=== PATIENT | female | born 1995 | race African-American/Black ===

== ENCOUNTER → 2016-07-02 | Outpatient (CLI) | payer OTHER ==
[~2016-07-02] MED LIST: ACET325T PO; CEPH500C PO; CITA20TA4 PO; FERR325T PO; FLUO1TAB3 PO; IBUP-232 PO; PERI8.6T PO; PRENTAB16 PO; PYRI25TA2 PO; SENN1TAB PO; TETA1INJ6 IM; TRAZ50TA12 PO
== END ==
LOC: HPND 11:57
PROVIDERS: ATTEND Family Medicine
DX: O26.849 Uterine size-date discrepancy, unspecified trimester (principal)
CPT/HCPCS: 76816

== ENCOUNTER 2016-10-15 20:41 | Inpatient (IN) | payer OTHER ==
[~2016-10-15 20:41] MED LIST changes: -ACET325T PO; -CEPH500C PO; -CITA20TA4 PO; -FLUO1TAB3 PO; -IBUP-232 PO; -SENN1TAB PO; -TETA1INJ6 IM; -TRAZ50TA12 PO
[2016-10-15] MEDS ORDERED: LACTATED RINGER'S 1000 ML INJ 1,000 ML IV PRN (21:33)
[2016-10-15] MEDS ORDERED: SODIUM CHLORID 0.9% 500 ML INJ 500 ML IV PRN (21:45)
[2016-10-15] MEDS ORDERED: LIDOCAINE HCL 1% 50 ML VIAL I-DERMAL PRN (21:45)
[2016-10-15] MEDS ORDERED: CITRIC ACID-SODIUM CITRATE LIQ 30 ML UDC PO SCH (21:45)
[2016-10-15] MEDS ORDERED: DINOPROSTONE 10 MG VAG INSERT VAGINAL ONE (21:45)
[2016-10-15] MEDS ORDERED: PENICILLIN G POTASSIUM INJ 5,000,000 UNITS in SODIUM CHLORIDE 0.9% INJ 100 ML IV ONE (21:45)
[2016-10-15] MEDS ORDERED: LIDOCAINE HCL 1% 50 ML VIAL INFIL PRN (21:45)
[2016-10-15] MEDS ORDERED: OXYTOCIN 30 UNITS-500ML PREMIX 500 ML IV ONE (21:45)
[2016-10-15] MEDS ORDERED: MINERAL OIL 10 ML VIAL TOPICAL PRN (21:45)
[2016-10-15] MEDS: LACTATED RINGER'S 1000 ML INJ 1,000 ML IV SCH (21:51)
[2016-10-15] MEDS ORDERED: SODIUM CHLOR 0.9% 1000 ML INJ 1,000 ML IV PRN (21:53)
--- NOTE | 2016-10-15 21:54 | HHI.HP ---
HPI Date Seen: October 15, 2016 Time Seen: 21:30 (Lucius Perry MD R3) Travel History International Travel<30 Days: No Contact w/Intl Traveler<30Days: No Known Affected Area: No (Lucius Perry MD R3) History of Present Illness HPI 21 year old patient at 40 and 4/7 weeks gestation presents for labor induction for post-dates . Davesha c/o mild low back pain at this time. Has been on-going issue throughout the third trimester. Otherwise no complaints. Endorses FM. Denies any VB or LOF. Para: 1 : 2 Miscarriage: 0 : 0 (Lucius Perry MD R3) History Past Medical History Medical History: Denies Significant Hx (Lucius Perry MD R3) Obstetric History Obstetric History 1st - no complications. Full term . Current - Post-dates, otherwise no complications. GBS positive. ( Lucius Perry MD R3) Past Surgical History Surgical History: No Previous Surgery (Lucius Perry MD R3) Family History Family History: Negative (Lucius Perry MD R3) Social History Alcohol Use: No Tobacco Use: Yes (1-2 cigarettes per day) Substance Abuse: Yes (Marijuana in 1st trimester) (Lucius Perry MD R3) Allergies-Medications (Allergen,Severity, Reaction): Coded Allergies: No Known Allergies (Verified , 10/10/16) Home Meds Active Scripts Ferrous Sulfate 325 Mg [id number] Mg PO BID #60 TAB Ref 11 Prov:Umer Mabry MD R2 10/09/16 Pyridoxine 25 Mg Tab25 Mg PO DAILY #30 TAB Ref 11 Prov:Ellen Morrow MD 07/19/16 Vit W/ Ferrous Fumara ( Complete 14-0.4 mg)1 Tab Tab1 Tab PO DAILY #30 TAB Ref 11 Prov:Ellen Morrow MD 06/20/16 Sennosides-Docusate Sodium (Caitlyn-Colace)8.6-50 Mg Tab1 Tab PO DAILY PRN ( Constipation) #30 TAB Ref 11 Prov:Ellen Morrow MD 06/20/16 Discontinued Scripts Ferrous Sulfate 325 Mg [id number] Mg PO DAILY #30 TAB Ref 11 Prov:Ellen Morrow MD 07/19/16 Review of Systems General / Constitutional: No: Fever, Weight Loss, Chills Eyes: No: Diploplia, Blurred Vision HENT: No: Headaches, Vertigo Cardiovascular: No: Irregular Rhythm, Chest Pain or Discomfort Respiratory: No: Cough, Short of Breath Gastrointestinal: No: Nausea, Vomiting Genitourinary: No: Urgency, Frequency Musculoskeletal: Pain (Back), No: Limited ROM, Weakness, Cramping Skin: No Rash, No Itching Neurologic: No: Weakness, Dizziness, Syncope Psychiatric: No: Anxiety, Depression (Lucius Perry MD R3) Physical Exam Narrative VITALS: reviewed and WNL. GENERAL: Well-nourished, well-developed patient. SKIN: Warm and dry. HEAD: Normocephalic and atraumatic. EYES: No scleral icterus. No injection or drainage. ENT: No nasal drainage noted. Mucous membranes pink. Airway patent. NECK: Supple, trachea midline. No JVD. CARDIOVASCULAR: Regular rate and rhythm without murmurs, gallops, or rubs. RESPIRATORY: Breath sounds equal bilaterally. No accessory muscle use. ABDOMEN/GI: Abdomen soft, non-tender, bowel sounds present, no rebound, no guarding GENITOURINARY: External Genitalia: intact and normal in appearance Cervix: intermediate Dilatation: 3 cm Effacement: 30% Station: -2 Presentation: vertex Membranes: intact Uterine Contractions: irritable FHT's: cat 1. Baseline of 150. EXTREMITIES: No cyanosis or edema. BACK: Nontender without obvious deformity. No CVA tenderness. NEUROLOGICAL: Awake and alert. Motor and sensory grossly within normal limits. Five out of 5 muscle strength in all muscle groups. Normal speech. (Lucius Perry MD R3) Data Data Vital Signs Reviewed: Yes Orders Admit To Inpatient (10/15/16 ) Code Status (10/15/16 21:33) Vital Signs (Adult) .Per protocol (10/15/16 21:33) Activity Oob Ad Nichelle (10/15/16 21:33) Heart (10/15/16 21:33) Amnioinfusion (10/15/16 21:33) Urinary Catheter Management .ONCE (10/15/16 21:33) Diet Liquid (10/16/16 Breakfast) Lactated Ringer's 1000 Ml Inj (Lr 1000 M (10/15/16 21:33) Lactated Ringer's 1000 Ml Inj (Lr 1000 M (10/15/16 21:33) Sodium Chlorid 0.9% 500 Ml Inj (Ns 500 M (10/15/16 21:45) Sodium Chlor 0.9% 1000 Ml Inj (Ns 1000 M (10/15/16 21:53) Lidocaine 1% Inj (50 Ml) (Xylocaine 1% I (10/15/16 21:45) Citric Acid-Sodium Citrate Liq (Bicitra (10/15/16 21:45) Fentanyl Inj (Fentanyl Inj) (10/15/16 21:45) Fentanyl Inj (Fentanyl Inj) (10/15/16 21:45) Penicillin G Potassium Inj (Pfizerpen-G (10/15/16 21:45) Penicillin G Potassium Inj (Pfizerpen-G (10/16/16 01:45) Complete Blood Count With Diff (10/15/16 21:33) Hold Clot (10/15/16 21:33) Abo/Rh Blood Type (10/15/16 21:33) Urinalysis - C+S If Indicated (10/15/16 21:33) Rapid Plasma Regin (Rpr) W Ttr (10/15/16 21:33) Hepatitis Profile (10/15/16 21:33) Resp Oxygen Non Rebreathe Mask (10/15/16 ) ^ Epidural / Intrathecal Infus (10/15/16 21:33) Oxytocin 30 Units-500ml Premix (Pitocin (10/15/16 21:45) Lidocaine 1% Inj (50 Ml) (Xylocaine 1% I (10/15/16 21:45) Light Mineral Oil (Muri-Lube Oil) (10/15/16 21:45) ^ Labor Induction (10/15/16 21:33) ^ Vaginal Insert (10/15/16 21:33) ^ Vaginal Lavage (10/15/16 21:33) Heart (10/15/16 21:33) Dinoprostone Vag Insert (Cervidil Vag In (10/15/16 21:45) Inpatient Certification (10/15/16 ) Specimen To Be Collected PRN (10/15/16 21:33) (Lucius Perry MD R3) Assessment/Plan Problem List: (1) Post-dates (2) Smoking (tobacco) complicating , third trimester (3) Marijuana abuse Assessment and Plan 21 year old patient at 40 and 4/7 weeks based on 1st trimester u/s here for labor induction for post-dates. GBS positive. -admit for labor induction. -ripening with cervidil overnight followed by pitocin in the morning. -IVF hydration with LRs -clear liquid diet for now -OOB ad nichelle once normal tracing established -pen G for GBS ppx -no 3rd trimester RPR or Hep panel. Will add these to admission labs. -check UDS, given h/o marijuana use this Discussed with (Lucius Perry MD R3) Attending Attestation Agree with H&P Merino score of 3 for cervical ripening Start PCN on admission (Cherise Centeno MD) Lucius Perry MD R3 October 15, 2016 21:54 Cherise Centeno MD October 16, 2016 03:11
[2016-10-15 22:30] VITALS: RESP 1; RESP 18; TEMP 97.4
[2016-10-15 22:50] LABS: AUTOMATED NEUTROPHIL # 10.4 TH/MM3 (1.8-7.7); BASOPHIL # 0.1 TH/MM3 (0-0.2); BASOPHIL % 0.4 % (0.0-2.0); EOSINOPHIL # 0.1 TH/MM3 (0-0.4); EOSINOPHIL % 0.6 % (0.0-4.0); HEMATOCRIT 33.3 % (35.0-46.0); LYMPH % 21.9 % (9.0-44.0); LYMPHOCYTE # 3.2 TH/MM3 (1.0-4.8); MEAN CELL VOLUME 76.4 FL (80.0-100.0); MEAN CORPUSCULAR HEMOGLOBIN 24.9 PG (27.0-34.0); MEAN CORPUSCULAR HGB CONC 32.6 % (32.0-36.0); NEUT % 70.1 % (16.0-70.0); PLATELET COUNT 143 TH/MM3 (150-450); RED BLOOD COUNT 4.36 MIL/MM3 (4.00-5.30); RED CELL DISTRIBUTION WIDTH 13.9 % (11.6-17.2); WHITE BLOOD COUNT 14.8 TH/MM3 (4.0-11.0)
[2016-10-15 22:51] LABS: HEMO FLAGS AUTO DIFF
[2016-10-15 23:06] LABS: BACTERIA, URINE OCC /hpf; BLOOD, URINE NEG (NEG); GLUCOSE,URINE NEG (NEG); HYALINE CAST, URINE 1 /lpf (RARE); KETONE, URINE NEG (NEG); MUCUS URINE FEW /lpf (OCC); NITRITE,URINE NEG (NEG); RENAL EPITHELIAL CELLS <1 /hpf; SQUAMOUS EPITHELIAL CELL URINE 8 /hpf (0-5); TRANSITIONAL EPI CELLS, URINE <1 /hpf; URINE COLOR YELLOW (YELLW/STRAW)
[2016-10-15 23:07] LABS: COMMENT (UR) CULTURE INDICATED; CULTURE IF INDICATED CULTURE INDICATED
[2016-10-15 23:22] LABS: PLATELET ESTIMATE SMEAR NORMAL (NORMAL); PLATELET MORPHOLOGY NORMAL (NORMAL); SCAN/DIFF AUTO DIFF CONFIRMED
[2016-10-16] VITALS (23 sets, daily range): BP systolic 90–127; BP diastolic 59–87; PULSE 18–105; RESP 8–18; TEMP 97.5–98.1
[2016-10-16] MEDS ORDERED: ZOLPIDEM TARTRATE 5 MG TAB PO PRN ×2 (00:30→05:00)
[2016-10-16] MEDS ORDERED: ACETAMINOPHEN 325 MG TAB PO PRN (00:30)
[2016-10-16] MEDS ORDERED: fentaNYL 2MCG-BUPIV 0.125% INJ 100 ML ONE (01:10)
[2016-10-16] MEDS ORDERED: ePHEDrine/NS 25 MG/5 ML SYR ONE (01:10)
[2016-10-16] MEDS ORDERED: NO SYSTEM NARCOTICS PRN (01:45)
[2016-10-16] MEDS ORDERED: DO NOT ADMINISTER ANTICOAGULANTS PRN (01:45)
[2016-10-16] MEDS ORDERED: fentaNYL 2MCG-BUPIV 0.125% 100 ML EPIDURAL SCH (01:45)
[2016-10-16] MEDS ORDERED: PENICILLIN G POTASSIUM INJ 2,500,000 UNITS in SODIUM CHLORIDE 0.9% INJ 100 ML IV SCH (02:00)
[2016-10-16] MEDS ORDERED: ePHEDrine/NS 25 MG/5 ML SYR IV PRN (02:00)
[2016-10-16 02:08] LABS: AMPHETAMINE, URINE NEG (NEG); BARBITURATES, URINE NEG (NEG); COCAINE, URINE NEG (NEG)
[2016-10-16] MEDS: LACTATED RINGER'S 1000 ML INJ 1,000 ML IV SCH (02:56)
[2016-10-16] MEDS ORDERED: WITCH HAZEL 50%/GLYCERIN 12.5% 40 PAD JAR TOPICAL PRN (05:00)
[2016-10-16] MEDS ORDERED: SODIUM CHLORIDE 0.9% FLUSH 10 ML FLUSH IV FLUSH PRN (05:00)
[2016-10-16] MEDS ORDERED: DOCUSATE SODIUM 50 MG/SENNA 8.6 MG TAB PO PRN (05:00)
[2016-10-16] MEDS ORDERED: BENZOCAINE 20% TOPICAL SPRAY 60 ML CAN TOPICAL PRN (05:00)
[2016-10-16] MEDS ORDERED: ONDANSETRON ODT 4 MG TAB PO PRN (05:00)
[2016-10-16] MEDS ORDERED: ALUMINUM/MAGNESIUM/SIMETH 30 ML CUP PO PRN (05:00)
[2016-10-16] MEDS ORDERED: OXYTOCIN 10 UNIT/ML AMP IM ONE (05:15)
[2016-10-16] MEDS ORDERED: CLINDAMYCIN INJ 900 MG in SODIUM CHLORIDE 0.9% INJ 100 ML IV ONE (05:15)
--- NOTE | 2016-10-16 05:17 | PD.OB.DELI ---
Delivery Date: October 16, 2016 Anesthesia: Epidural Episiotomy: None Vaginal Delivery: Normal, Spontaneous Presentation: Occiput anterior Nuchal Cord: x1 Delayed cord clamping (45 sec): Yes : Female, Single One Minute : 8 Five Minute : 9 Weight: 6lb 13oz Placenta: Spontaneous delivery, Intact, 3 vessel cord Laceration: Perineal laceration Repair: Chromic interrupted Additional Information 21yo at 40.5 weeks induced 2/2 postdates with Cervidil placed at 9pm 10/14. Overnight, patient progressed. arrhythmia and two 60 second decelerations led to AROM at 04:30 on 10/15 with thick meconium stained fluid Baby delivery spontaneously. There were 3 abrasions repaired with 3 o vicryl EBC <300 cc Mother and baby recovering well (Ellen Morrow MD) . I personally attended and was present for the duration of the delivery and repair. Attending Note (Cherise Centeno MD) Ellen Morrow MD October 16, 2016 05:17 Cherise Centeno MD October 16, 2016 07:00
--- NOTE | 2016-10-16 08:57 | HHI.OB ---
Subjective Post Day: 0 Remarks day # 0. Delivered early this morning. Currently feeling well. AFVSS. She asks about baby. Objective Vitals/I&O Vital Signs Date Time Temp Pulse Resp B/P Pulse Ox O2 Delivery O2 Flow Rate FiO2 10/16/16 08:00 98.0 18 8 10/16/16 08:00 117/85 10/16/16 08:00 80 16 10/16/16 06:30 18 10/16/16 06:24 72 118/75 10/16/16 06:02 97 106/81 10/16/16 05:56 18 10/16/16 05:45 18 10/16/16 05:30 98.1 71 18 113/86 10/16/16 05:00 103/82 10/16/16 04:30 90 100/74 10/16/16 04:00 77 97/65 10/16/16 03:30 78 90/59 10/16/16 03:19 97.5 16 10/16/16 03:00 76 101/65 10/16/16 02:30 86 102/63 10/16/16 02:05 75 112/69 10/16/16 02:00 105 111/70 10/16/16 01:40 111/80 10/16/16 01:35 84 127/85 10/16/16 01:31 91 10/16/16 01:31 127/79 10/16/16 01:26 81 126/87 10/16/16 01:25 84 10/16/16 01:20 89 10/16/16 01:15 86 10/15/16 22:30 18 10/15/16 22:30 97.4 1 Objective Remarks GENERAL: Well-nourished, well-developed patient. CARDIOVASCULAR: Warm and well perfused RESPIRATORY: No accessory muscle use. ABDOMEN/GI: Abdomen soft. EXTREMITIES: No cyanosis or edema Medications and IVs Current Medications Medications (Trade) Dose Ordered Sig/Eliecer Route Start Time Stop Time Status Last Admin Lactated Ringer's 1,000 ml @ 125 mls/hr Q8H IV 10/15/16 21:33 10/16/16 02:56 Lactated Ringer's 1,000 ml @ 3,000 mls/hr Q20M PRN IV 10/15/16 21:33 Sodium Chloride 500 ml @ 1,000 mls/hr ONCE PRN IV 10/15/16 21:45 10/16/16 21:44 (NS 1000 ml Inj) 1,000 ml @ 100 mls/hr Q10H PRN IV 10/15/16 21:53 (fentaNYL INJ) 50 mcg Q1H PRN IV PUSH 10/15/16 21:45 Fentanyl Citrate 100 mcg 100 mcg Q1H PRN IV PUSH 10/15/16 21:45 (Pfizerpen-G Inj/ NS Inj) 100 ml @ 200 mls/hr Q4H IV 10/16/16 02:00 10/16/16 02:22 (Muri-Lube Oil) 10 ml UNSCH PRN TOPICAL 10/15/16 21:45 (Tylenol) 650 mg Q4H PRN PO 10/16/16 00:30 (Ambien) 5 mg HS PRN PO 10/16/16 00:30 Miscellaneous Information No systemic narcotics to be given except... UNSCH PRN .XX 10/16/16 01:45 10/17/16 01:44 Miscellaneous Information DO NOT ADMINISTER ANY ANTICOAGUL... UNSCH PRN .XX 10/16/16 01:45 10/17/16 01:44 (fentaNYL 2MCG-BUPIV 0.125% INJ) 100 ml @ 0 mls/hr TITRATE EPIDURAL 10/16/16 01:45 10/16/16 01:55 (ePHEDrine/NS 25 MG/5 ML SYR) 10 mg UNSCH PRN IV 10/16/16 02:00 10/17/16 01:59 (NS Flush) 2 ml BID IV FLUSH 10/16/16 09:00 (NS Flush) 2 ml UNSCH PRN IV FLUSH 10/16/16 05:00 (Tylenol) 650 mg Q4H PRN PO 10/16/16 05:00 (Motrin) 600 mg Q6H PRN PO 10/16/16 05:00 (Americaine 20% Top Spr) 1 spray Q4H PRN TOPICAL 10/16/16 05:00 10/16/16 07:24 (Tucks Pads) 1 applic QID PRN TOPICAL 10/16/16 05:00 10/16/16 07:24 (Caitlyn-Colace) 2 tab Q12H PRN PO 10/16/16 05:00 (Ambien) 5 mg HS PRN PO 10/16/16 05:00 (M-M-R Ii Inj) 0.5 ml ONCE ONCE SQ 10/16/16 16:00 10/16/16 16:01 (Boostrix Inj) 0.5 ml ONCE ONCE IM 10/16/16 16:00 10/16/16 16:01 (Mag-Al Plus Susp Liq) 15 ml Q8H PRN PO 10/16/16 05:00 (Zofran Odt) 4 mg Q6H PRN PO 10/16/16 05:00 10/16/16 06:00 Assessment/Plan Problem List: (1) Post-dates (2) Smoking (tobacco) complicating , third trimester (3) Marijuana abuse Assessment and Plan 21 y/o female who is PPD# 0 s/p 1) care: -Continue routine care -Motrin PRN pain -Encouraged OOB. Will need a f/u appt. in 6 wks -Re: ctrl, she is considering options -D/c in 1-2 more days. 2) UDS + for marijuana -Patient advised to not breastfeed as positive for marijuana in urine -Will pump breastmilk and dump at this time -Marijuana can stay in system for weeks to months, advised to not breastfeed while using marijuana -DCF was notified wdw Ellen Carrera MD October 16, 2016 08:57
[2016-10-16] MEDS ORDERED: SODIUM CHLORIDE 0.9% FLUSH 10 ML FLUSH IV FLUSH SCH (09:00)
[2016-10-16 09:44] LABS: RAPID PLASMA REAGIN SCREEN NON-REACTIVE (NON-REACTVE)
[2016-10-16] MEDS ORDERED: DIPHTH/TETANUS/ACEL PERTUSSIS (BOOSTER) 0.5 ML VIAL/PFS IM ONE (16:00)
[2016-10-16] MEDS ORDERED: MEASLES, MUMPS, RUBELLA VACCINE 0.5 ML VIAL SQ ONE (16:00)
[2016-10-16] MEDS: IBUPROFEN 600 MG TAB PO PRN (20:50)
[2016-10-16] MEDS: ACETAMINOPHEN 325 MG TAB PO PRN (23:05)
[2016-10-17 08:00] VITALS: BP 123/90; PULSE 66; RESP 18; TEMP 97.9
--- NOTE | 2016-10-17 08:06 | HHI.OB ---
Subjective Post Day: 1 Remarks day # 1 AFVSS overnight. Decreased lochia. No breast tenderness. She is feeding the baby via bottle. Appetite good. No nausea or vomiting. Positive flatus and had a bowel movement yesterday. Ambulating well. Denies calf pain or shortness of breath. Otherwise, she is doing well this morning and has no other complaints. (Ellen Morrow MD) Objective Vitals/I&O Vital Signs Date Time Temp Pulse Resp B/P Pulse Ox O2 Delivery O2 Flow Rate FiO2 10/16/16 08:00 98.0 18 8 10/16/16 08:00 117/85 10/16/16 08:00 80 16 Objective Remarks GENERAL: Well-nourished, well-developed patient. CARDIOVASCULAR: Regular rate and rhythm without murmurs, gallops, or rubs. RESPIRATORY: Breath sounds equal bilaterally. No accessory muscle use. ABDOMEN/GI: Abdomen soft, non-tender. Fundus: Firm, non-tender at umbilicus. GENITOURINARY: Light to moderate bleeding. EXTREMITIES: No cyanosis or edema, non-tender, without signs of DVT. Medications and IVs Current Medications Medications (Trade) Dose Ordered Sig/Eliecer Route Start Time Stop Time Status Last Admin Lactated Ringer's 1,000 ml @ 125 mls/hr Q8H IV 10/15/16 21:33 10/16/16 02:56 Lactated Ringer's 1,000 ml @ 3,000 mls/hr Q20M PRN IV 10/15/16 21:33 (NS 1000 ml Inj) 1,000 ml @ 100 mls/hr Q10H PRN IV 10/15/16 21:53 (fentaNYL INJ) 50 mcg Q1H PRN IV PUSH 10/15/16 21:45 Fentanyl Citrate 100 mcg 100 mcg Q1H PRN IV PUSH 10/15/16 21:45 (Pfizerpen-G Inj/ NS Inj) 100 ml @ 200 mls/hr Q4H IV 10/16/16 02:00 10/16/16 02:22 (Muri-Lube Oil) 10 ml UNSCH PRN TOPICAL 10/15/16 21:45 (Tylenol) 650 mg Q4H PRN PO 10/16/16 00:30 Zolpidem Tartrate 5 mg 5 mg HS PRN PO 10/16/16 00:30 (fentaNYL 2MCG-BUPIV 0.125% INJ) 100 ml @ 0 mls/hr TITRATE EPIDURAL 10/16/16 01:45 10/16/16 01:55 (NS Flush) 2 ml BID IV FLUSH 10/16/16 09:00 (NS Flush) 2 ml UNSCH PRN IV FLUSH 10/16/16 05:00 (Tylenol) 650 mg Q4H PRN PO 10/16/16 05:00 10/16/16 23:05 (Motrin) 600 mg Q6H PRN PO 10/16/16 05:00 10/16/16 20:50 (Americaine 20% Top Spr) 1 spray Q4H PRN TOPICAL 10/16/16 05:00 10/16/16 07:24 (Tucks Pads) 1 applic QID PRN TOPICAL 10/16/16 05:00 10/16/16 07:24 (Caitlyn-Colace) 2 tab Q12H PRN PO 10/16/16 05:00 (Ambien) 5 mg HS PRN PO 10/16/16 05:00 (Mag-Al Plus Susp Liq) 15 ml Q8H PRN PO 10/16/16 05:00 (Zofran Odt) 4 mg Q6H PRN PO 10/16/16 05:00 10/16/16 06:00 (Ellen Morrow MD) Assessment/Plan Problem List: (1) Post-dates (2) Smoking (tobacco) complicating , third trimester (3) Marijuana abuse Assessment and Plan 21 y/o female who is PPD# 1 s/p 1) care: -Continue routine care -Motrin PRN pain -Encouraged OOB. Will need a f/u appt with me in clinic, made her appt with me for 10/26/16 at 10am -Re: ctrl, she would like Depo Provera, ordered today -D/c tomorrow 2) UDS + for marijuana -Patient advised to not breastfeed as positive for marijuana in urine per Hospital policy and AAP guidlines -Marijuana can stay in system for weeks to months, advised to not breastfeed while using marijuana wdw Dr. Boateng (Ellen Morrow MD) Collaborating MD Comments Patient assessed and I agree with plan of care. (Mikki Boateng MD) Ellen Morrow MD October 17, 2016 08:06 Mikki Boateng MD October 17, 2016 09:49
[2016-10-17] MEDS ORDERED: medroxyPROGESTERone ACETATE SUSP 150 MG/ML SYRINGE IM ONE (08:15)
[2016-10-17] MEDS: ACETAMINOPHEN 325 MG TAB PO PRN ×2 (08:17→23:02)
[2016-10-17] MEDS: IBUPROFEN 600 MG TAB PO PRN ×2 (08:17→23:02)
[2016-10-18] MEDS: ACETAMINOPHEN 325 MG TAB PO PRN (03:02)
[2016-10-18 08:00] VITALS: BP 125/81; PULSE 65; RESP 18; TEMP 98.2
[2016-10-18] MEDS ORDERED: medroxyPROGESTERone ACETATE SUSP 150 MG/ML SYRINGE IM ONE ×2 (09:45→13:30)
--- NOTE | 2016-10-18 09:45 | HHI.OB ---
Subjective Post Day: 2 Remarks Pt seen and examined this morning. Pospartum day # 2 AFVSS overnight. Decreased lochia. Denies dysuria. No breast tenderness. She is feeding the baby via bottle. Appetite good. No nausea or vomiting. Patient has had a bowel movement.Ambulating well. Denies calf pain or shortness of breath. Otherwise, she is doing well this morning and has no other concerns. (Tl Carter MD R2) Objective Vitals/I&O Vital Signs Date Time Temp Pulse Resp B/P Pulse Ox O2 Delivery O2 Flow Rate FiO2 10/18/16 08:00 98.2 65 18 125/81 Objective Remarks GENERAL: Well-nourished, well-developed patient. CARDIOVASCULAR: Regular rate and rhythm without murmurs, gallops, or rubs. RESPIRATORY: Breath sounds equal bilaterally. No accessory muscle use. ABDOMEN/GI: Abdomen soft, non-tender. Fundus: Firm, non-tender at umbilicus. GENITOURINARY: Light to moderate bleeding. EXTREMITIES: No cyanosis or edema, non-tender, without signs of DVT. Medications and IVs Current Medications Medications (Trade) Dose Ordered Sig/Eliecer Route Start Time Stop Time Status Last Admin Lactated Ringer's 1,000 ml @ 125 mls/hr Q8H IV 10/15/16 21:33 10/16/16 02:56 Lactated Ringer's 1,000 ml @ 3,000 mls/hr Q20M PRN IV 10/15/16 21:33 (NS 1000 ml Inj) 1,000 ml @ 100 mls/hr Q10H PRN IV 10/15/16 21:53 (fentaNYL INJ) 50 mcg Q1H PRN IV PUSH 10/15/16 21:45 Fentanyl Citrate 100 mcg 100 mcg Q1H PRN IV PUSH 10/15/16 21:45 (Pfizerpen-G Inj/ NS Inj) 100 ml @ 200 mls/hr Q4H IV 10/16/16 02:00 10/16/16 02:22 (Muri-Lube Oil) 10 ml UNSCH PRN TOPICAL 10/15/16 21:45 (Tylenol) 650 mg Q4H PRN PO 10/16/16 00:30 Zolpidem Tartrate 5 mg 5 mg HS PRN PO 10/16/16 00:30 (fentaNYL 2MCG-BUPIV 0.125% INJ) 100 ml @ 0 mls/hr TITRATE EPIDURAL 10/16/16 01:45 10/16/16 01:55 (NS Flush) 2 ml BID IV FLUSH 10/16/16 09:00 (NS Flush) 2 ml UNSCH PRN IV FLUSH 10/16/16 05:00 (Tylenol) 650 mg Q4H PRN PO 10/16/16 05:00 10/18/16 03:02 (Motrin) 600 mg Q6H PRN PO 10/16/16 05:00 10/17/16 23:02 (Americaine 20% Top Spr) 1 spray Q4H PRN TOPICAL 10/16/16 05:00 10/16/16 07:24 (Tucks Pads) 1 applic QID PRN TOPICAL 10/16/16 05:00 10/16/16 07:24 (Caitlyn-Colace) 2 tab Q12H PRN PO 10/16/16 05:00 (Ambien) 5 mg HS PRN PO 10/16/16 05:00 (Mag-Al Plus Susp Liq) 15 ml Q8H PRN PO 10/16/16 05:00 (Zofran Odt) 4 mg Q6H PRN PO 10/16/16 05:00 10/16/16 06:00 (Tl Carter MD R2) Assessment/Plan Problem List: (1) Post-dates (2) Smoking (tobacco) complicating , third trimester (3) Marijuana abuse Assessment and Plan 21 y/o female who is PPD# 2 s/p 1) care: -Continue routine care -Motrin PRN pain -Encouraged OOB. Will need a f/u appt with Dr. Morrow in clinic, appointment is on 10/26/16 at 10am -Re: ctrl, she would like Depo Provera, ordered -D/c today 2) UDS + for marijuana -Patient advised to not breastfeed as positive for marijuana in urine per Hospital policy and AAP guidlines -Marijuana can stay in system for weeks to months, advised to not breastfeed while using marijuana wdw Dr. Aaron (Tl Carter MD R2) Attending Attestation PPD #2 s/p Doing well D/c home F/u with Dr. Sandstone, FP Patient seen and examined, d/w Dr. Carter and Dr. Gracia. (Argentina Aaron MD) Tl Carter MD R2 October 18, 2016 09:45 [place] Aaron MD October 18, 2016 09:54
[2016-10-18] MEDS ORDERED: SENN1TAB PO (09:50)
[2016-10-18] MEDS ORDERED: IBUP-232 PO (09:50)
[2016-10-18] MEDS ORDERED: ACET325T PO (09:50)
--- NOTE | 2016-10-18 09:52 | HHI.DCPOC ---
Discharge Care Plan Diagnosis: (1) Vaginal delivery Report Symptoms to Your Doctor -Temperate above 100.5 degrees -Redness, of incision or excessive or foul smelling drainage -Unusual pain or calf pain -Increased vaginal bleeding -Painful or difficulty urinating -Feelings of extreme sadness or anxiety after 2 weeks Goals to Promote Your Health * To prevent worsening of your condition and complications * To maintain your health at the optimal level Directions to Meet Your Goals Take your medications as prescribed Follow your dietary instruction Follow activity as directed Ensure plenty of rest for recovery Drink fluids for hydration Keep your appointments as scheduled Take your immunizations and boosters as scheduled If your symptoms worsen call your PCP, if no PCP go to Urgent Care Center or Emergency Room Smoking is Dangerous to Your Health. Avoid second hand smoke Call the 24-hour crisis hotline for domestic abuse at Tl Carter MD R2 October 18, 2016 09:52
[2016-10-18 14:43] LABS: BATH SALTS (MDPV) UR NEG (NEG); ECSTASY (MDMA) UR NEG (NEG); GABAPENTIN UR NEG (NEG); HEROIN (6-ACETYLMORPHINE) UR NEG (NEG); K2 SPICE UR NEG (NEG); OBMETHADONE UR NEG (NEG); OXYCODONE (PERCODAN) NEG (NEG); PHENCYCLIDINE URINE NEG (NEG)
[2016-10-18 14:44] LABS: HYDROMORPHONE U NEG (NEG)
[2016-11-01] MEDS ORDERED: CITA20TA4 PO (11:01)
[2016-11-01] MEDS ORDERED: TRAZ50TA12 PO (11:01)
[2016-11-01] MEDS ORDERED: FLUO1TAB3 PO (14:01)
== END 2016-10-18 13:18 | disposition home or self-care (01) | DRG 775 ==
LOC: H2EB 20:41 → H1EA 10-16 07:31
PROVIDERS: ADMIT Obstetrics & Gynecology; ATTEND Obstetrics & Gynecology
PROC: 0HQ9XZZ Repair Perineum Skin, External Approach (ICD-10-PCS; principal; 2016-10-16)
PROC: 10E0XZZ Delivery of Products of Conception, External Approach (ICD-10-PCS; 2016-10-16)
PROC: 3E0R3CZ (ICD-10-PCS; 2016-10-16)
PROC: 00HU33Z Insertion of Infusion Device into Spinal Canal, Percutaneous Approach (ICD-10-PCS; 2016-10-16)
PROC: 10907ZC Drainage of Amniotic Fluid, Therapeutic from Products of Conception, Via Natural or Artificial Opening (ICD-10-PCS; 2016-10-16)
DX: O48.0 Post-term pregnancy (principal); O99.324 Drug use complicating childbirth; Z37.0 Single live birth; O99.334 Smoking (tobacco) complicating childbirth; F17.210 Nicotine dependence, cigarettes, uncomplicated; F12.10 Cannabis abuse, uncomplicated; O99.824 Streptococcus B carrier state complicating childbirth; O69.81X0 Labor and delivery complicated by cord around neck, without compression, not applicable or unspecified; O76 Abnormality in fetal heart rate and rhythm complicating labor and delivery; Z3A.40 40 weeks gestation of pregnancy; O70.9 Perineal laceration during delivery, unspecified; O77.0 Labor and delivery complicated by meconium in amniotic fluid
CPT/HCPCS: 59025; 80074; 80307; 81001; 85025; 86592; 87086; 90715; G0481; J1050; J2540; J2590; J7120

== ENCOUNTER 2017-09-24 07:04 | Emergency (ER) | payer OTHER ==
[~2017-09-24] VITALS: Ht 154.9 cm; Wt 72.0 kg
[~2017-09-24 07:04] MED LIST changes: +ACET325T PO; +FLUO1TAB3 PO; +IBUP-232 PO; +SENN1TAB PO; +TRAZ50TA12 PO
[2017-09-24 07:11] VITALS: BP 120/75; PULSE 77; RESP 16; TEMP 98; O2SAT 100
[2017-09-24 07:24] VITALS: BP 130/77; PULSE 79; RESP 18; O2SAT 100
[2017-09-24] MEDS ORDERED: IBUP1TAB7 PO (07:54)
[2017-09-24] MEDS ORDERED: MEDR4PAK PO (07:54)
[2017-09-24] MEDS ORDERED: ROBA500T PO (07:54)
--- NOTE | 2017-09-24 07:54 | PD ---
HPI Chief Complaint: Hip Injury Time Seen by Provider: 07:25 Travel History International Travel<30 days: No Contact w/Intl Traveler<30days: No Traveled to known affect area: No History of Present Illness HPI 22-year-old female presents to the emergency department with complaint of right hip pain 1 week. Denies injury. Pain radiates to her thigh. Denies fever, vomiting, abdominal pain. Denies paresthesias, loss of sensation, decreased range of motion, decreased strength to the affected extremity. Denies encopresis, incontinence, saddle anesthesias. Denies IV drug use or cancer. Says this pain has happened before. Denies change in gait. Has not taken any medications or try any treatments to alleviate her symptoms. Rates pain 7/10. Describes it as sharp. Worse with pressure with walking. Better while at rest. No primary care provider. No known allergies. Denies significant past medical history. Has no other medical complaints. No other modifying factors or associated signs and symptoms. PFSH Past Medical History Diminished Hearing: No : 2 Para: 1 Social History Alcohol Use: No Tobacco Use: Yes (1-2 cigarettes per day) Substance Use: Yes (marijuiana) Allergies-Medications (Allergen,Severity, Reaction): Coded Allergies: No Known Allergies (Verified Adverse Reaction, Unknown, 09/24/17) Reported Meds & Prescriptions Reported Meds & Active Scripts Active Medrol Dosepak (Methylprednisolone) 4 Mg Dspk 4 Mg PO DIRECTED Per Pharmacist direction Ibuprofen 800 Mg Tab 800 Mg PO Q6HR PRN Robaxin (Methocarbamol) 500 Mg Tab 500 Mg PO QID PRN Fluoxetine (Fluoxetine HCl) 20 Mg Tab 20 Mg PO DAILY Trazodone (Trazodone HCl) 50 Mg Tab 50 Mg PO HS Senna Plus 8.6-50 mg (Sennosides-Docusate Sodium) 1 Tab Tab 2 Tab PO Q12H PRN Ibuprofen 600 Mg Tab 600 Mg PO Q6H PRN Acetaminophen 325 Mg Tab 650 Mg PO Q4H PRN Ferrous Sulfate 325 Mg Tab 325 Mg PO BID Pyridoxine (Pyridoxine HCl) 25 Mg Tab 25 Mg PO DAILY Complete 14-0.4 mg ( Vit W/ Ferrous Fumara) 1 Tab Tab 1 Tab PO DAILY Caitlyn-Colace (Sennosides-Docusate Sodium) 8.6-50 Mg Tab 1 Tab PO DAILY PRN Review of Systems Except as stated in HPI: all other systems reviewed are Neg Physical Exam Narrative GENERAL: Well-nourished, well-developed black female patient, in no acute distress; afebrile, nontoxic-appearing SKIN: Warm and dry. HEAD: Atraumatic. Normocephalic. EYES: Pupils equal and round. No scleral icterus. No injection or drainage. ENT: Mucosa pink and moist. Airway patent. NECK: Trachea midline. CARDIOVASCULAR: Regular rate. RESPIRATORY: No accessory muscle use. GASTROINTESTINAL: Abdomen soft, non-tender, nondistended. Positive bowel sounds. No hepato-splenomegaly, or palpable masses. No guarding. MUSCULOSKELETAL: Bilateral lower extremities supple and non-tense with 2+ pedal pulses and sensory intact; with full range of motion and 5/5 strength. 2 + DTRs bilaterally. Active dorsiflexion and extension of bilateral feet. Right straight leg raise is positive for low back pain. Ambulatory in room with normal gait. Sitting up in bed at 90. No obvious deformities. No clubbing. No cyanosis. No edema. BACK: No midline point tenderness on palpation of the lumbar spine. Tenderness on palpation of right lumbar iliosacral area. No obvious deformities. NEUROLOGICAL: Awake and alert. Oriented 3. No obvious cranial nerve deficits. Motor grossly within normal limits. Normal speech. Moves all extremities. 5/5 strength to all extremities. Sensory intact. PSYCHIATRIC: Appropriate mood and affect; insight and judgment normal. Data Data Last Documented VS Vital Signs Date Time Temp Pulse Resp B/P (MAP) Pulse Ox O2 Delivery O2 Flow Rate FiO2 09/24/17 07:24 79 18 130/77 (94) 100 Room Air 09/24/17 07:11 98.0 Orders Orders Ketorolac Inj (Toradol Inj) (09/24/17 08:00) Orphenadrine Inj (Norflex Inj) (09/24/17 08:00) Ed Discharge Order (09/24/17 07:51) [facility] Medical Decision Making Medical Screen Exam Complete: Yes Emergency Medical Condition: Yes Medical Record Reviewed: Yes Differential Diagnosis Low back pain, sciatica, hip pain Narrative Course 22-year-old female complaining of right hip pain, but her pain is to the right lower back and radiates to her right thigh. Exam findings consistent right- sided low back pain with sciatica. Denies encopresis, incontinence, saddle anesthesias. Denies IV drug use or cancer. Patient is afebrile and nontoxic- appearing and denies fever vomiting. Neuro exam is unremarkable. Patient ability in the room with a normal gait. No midline tenderness on palpation of the lumbar spine. Toradol, Norflex administered in the ER. Medrol Dosepak, ibuprofen, Robaxin prescribed for home. Instructed patient to follow up with primary care provider. Patient verbalizes understanding and agreement with treatment plan. Patient is medically cleared and stable for discharge. Discussed reasons to return to the emergency department. Patient agrees with treatment plan. The patients vital signs are stable and the patient is stable for outpatient follow-up and treatment. Patient discharged home, stable and in no acute distress. Diagnosis Primary Impression: Right-sided low back pain with sciatica Qualified Codes: M54.41 - Lumbago with sciatica, right side Referrals: [facility] Primary Care Physician Patient Instructions: Acute Low Back Pain (ED), General Instructions, Sciatica (ED) Departure Forms: Tests/Procedures, Work Release Enter return to work date: Sep 26, 2017 Additional Instructions: Tylenol or ibuprofen as directed and as needed for pain Robaxin as prescribed and as needed for muscle spasms Heating pad and/or ice to affected area to reduce pain Avoid aggravating activities; increase activity as tolerated Follow-up with primary care provider Return to emergency department immediately with worsening of symptoms Med/Other Pt SpecificInfo: Prescription(s) given Scripts Methylprednisolone Dosepak (Medrol Dosepak) 4 Mg Dspk 4 MG PO DIRECTED, #1 DSPK 0 Refills Per Pharmacist direction Prov: Madelyn Torrez 09/24/17 Ibuprofen (Ibuprofen) 800 Mg Tab 800 MG PO Q6HR Y for PAIN, #30 TAB 0 Refills Prov: Madelyn Torrez 09/24/17 Methocarbamol (Robaxin) 500 Mg Tab 500 MG PO QID Y for MUSCLE SPASM, #30 TAB 0 Refills Prov: Madelyn Torrez 09/24/17 Disposition: 01 DISCHARGE HOME Condition: Stable Madelyn Torrez Sep 24, 2017 07:54
[2017-09-24] MEDS ORDERED: ORPHENADRINE INJ 60 MG/2 ML AMP IM ONE (08:00)
[2017-09-24] MEDS ORDERED: KETOROLAC TROMETHAMINE 60 MG/2 ML (IM) VIAL IM ONE (08:00)
== END 2017-09-24 08:14 | disposition home or self-care (01) ==
LOC: NEPD 07:04
DX: M54.41 Lumbago with sciatica, right side (principal); F12.90 Cannabis use, unspecified, uncomplicated; F17.210 Nicotine dependence, cigarettes, uncomplicated
CPT/HCPCS: 96372; 99283; J1885; J2360

== ENCOUNTER 2017-11-19 13:56 | Emergency (ER) | payer SELFPAY ==
[~2017-11-19] VITALS: Ht 154.9 cm; Wt 70.0 kg
[~2017-11-19 13:56] MED LIST changes: +IBUP1TAB7 PO; +MEDR4PAK PO; +ROBA500T PO
[2017-11-19 14:09] VITALS: BP 147/93; PULSE 87; RESP 16; TEMP 97.7; O2SAT 100
[2017-11-19] MEDS ORDERED: PENI500T PO (16:22)
[2017-11-19] MEDS ORDERED: IBUP1TAB7 PO (16:22)
[2017-11-19] MEDS ORDERED: MAGICPED SWISH-SPIT (16:22)
--- NOTE | 2017-11-19 16:22 | PD ---
HPI Chief Complaint: Oral / Dental Pain or Problem Time Seen by Provider: 16:13 Travel History International Travel<30 days: No Contact w/Intl Traveler<30days: No Traveled to known affect area: No History of Present Illness HPI 22-year-old female presents emergency department with lower left jaw pain that started yesterday while she was at work. Patient says that this pain started spontaneously denies any inciting events. Says the pain is sharp and radiates from her lower jaw to her ear and into her neck. She denies stiff neck however. She denies fevers or chills. Denies nausea vomiting diarrhea. Says the pain is moderate to severe. She has not seen a dentist for this. PFS Past Medical History Medical History: Denies Significant Hx Diabetes: No Diminished Hearing: No Tetanus Vaccination: Unknown ?: Not LMP: 10/02/17 : 2 Para: 2 Social History Alcohol Use: No Tobacco Use: No Substance Use: Yes (ivanna) Allergies-Medications (Allergen,Severity, Reaction): Coded Allergies: No Known Allergies (Verified Adverse Reaction, Unknown, 11/19/17) Reported Meds & Prescriptions Reported Meds & Active Scripts Active Ibuprofen 800 Mg Tab 800 Mg PO Q8H PRN 5 Days Magic Mouthwash Pediatric/Adult Liq (Lidocaine/Diphenhydr/Alum/Mg/Simeth) 60 Ml Susp 5 Ml SWISH-SPIT ACHS Each 5mL contains: Diphenydramine 4.5mg, Viscous Lidocaine 2% 10mg, Maalox Advanced Regular Strength 2.7ml Penicillin V Potassium 500 Mg Tab 500 Mg PO Q8H 7 Days Review of Systems Except as stated in HPI: all other systems reviewed are Neg Physical Exam Narrative GENERAL: Well-nourished, well-developed patient, in NAD SKIN: Focused skin assessment warm/dry. No rashes or lesions. HEAD: Normocephalic. Atraumatic. EYES: No scleral icterus. No injection or drainage. PERRLA, EOMI THROAT: No pharyngeal injection, exudates, or tonsillar hypertrophy. Airway is patent. Left lower jawline-tenderness palpation about the second bicuspid near the jaw without fluctuance. No Exudate Poor dentition, apparent fractured tooth in the molar with multiple erosions of the teeth NECK: Supple, trachea midline. No JVD or lymphadenopathy. No meningismus. CARDIOVASCULAR: Regular rate and rhythm without murmurs, gallops, or rubs. RESPIRATORY: Breath sounds equal bilaterally. No accessory muscle use. No wheezes, rales, or rhonchi MUSCULOSKELETAL: No cyanosis, or edema. BACK: Nontender without obvious deformity. No CVA tenderness. Data Data Last Documented VS Vital Signs Date Time Temp Pulse Resp B/P (MAP) Pulse Ox O2 Delivery O2 Flow Rate FiO2 11/19/17 16:27 138/85 (102) 11/19/17 14:09 97.7 87 16 100 Orders Orders Ketorolac Inj (Toradol Inj) (11/19/17 16:30) Penicillin V Potassium (Veetids) (11/19/17 16:30) Acetamin-Hydrocod 325-5 Mg ([place] 5-325 (11/19/17 16:30) Ed Discharge Order (11/19/17 16:23) MDM Medical Decision Making Medical Screen Exam Complete: Yes Emergency Medical Condition: Yes Differential Diagnosis Dental infection, dental abscess, tooth infection Narrative Course 22-year-old female presents emergency department with lower left jaw pain that started yesterday while she was at work. Patient says that this pain started spontaneously denies any inciting events. Says the pain is sharp and radiates from her lower jaw to her ear and into her neck. She denies stiff neck however. She denies fevers or chills. Denies nausea vomiting diarrhea. Says the pain is moderate to severe. She has not seen a dentist for this. Signs are stable. Physical exam findings consistent with a dental infection. No evidence of an abscess. No meningismus. Patient given hydrocodone, penicillin, Toradol in the emergency department. She is discharged with ibuprofen, Magic mouthwash, and penicillin. Advised follow-up with dentist. Follow-up with primary care physician within 2-3 days. Return for worsening or persistent symptoms. Diagnosis Primary Impression: Dental infection Referrals: Dentist Additional Instructions: Follow-up with a dentist as soon as possible. Take all medications as prescribed. Scripts Ibuprofen (Ibuprofen) 800 Mg Tab 800 MG PO Q8H Y for Pain/Inflammation for 5 Days, #15 TAB 0 Refills Prov: Reuben Allen MD 11/19/17 Snclpvopxvemctw-Drrtmpzns-Aba-Alum-Simeth Liq (Magic Mouthwash Pediatric/Adult Liq) 60 Ml Susp 5 ML SWISH-SPIT ACHS for Mouth sores, #60 ML 0 Refills Each 5mL contains: Diphenydramine 4.5mg, Viscous Lidocaine 2% 10mg, Maalox Advanced Regular Strength 2.7ml Prov: Reuben Allen MD 11/19/17 Penicillin V Potassium (Penicillin V Potassium) 500 Mg Tab 500 MG PO Q8H for Infection for 7 Days, #21 TAB 0 Refills Prov: Reuben Allen MD 11/19/17 Disposition: 01 DISCHARGE HOME Condition: Stable Dang Moser Nov 19, 2017 16:21
[2017-11-19 16:27] VITALS: BP 138/85
[2017-11-19] MEDS ORDERED: PENICILLIN V POTASSIUM 500 MG TAB PO ONE (16:30)
[2017-11-19] MEDS ORDERED: KETOROLAC TROMETHAMINE 60 MG/2 ML (IM) VIAL IM ONE (16:30)
[2017-11-19] MEDS ORDERED: ACETAMINOPHEN/HYDROcodone 325 MG/5 MG TAB PO ONE (16:30)
== END 2017-11-19 16:55 | disposition home or self-care (01) ==
LOC: NEPC 13:56
DX: K04.7 Periapical abscess without sinus (principal); F12.90 Cannabis use, unspecified, uncomplicated
CPT/HCPCS: 96374; 99283; J1885